=== PATIENT | female | born 2000 | race Caucasian/White ===

== ENCOUNTER 2021-10-23 19:11 | Emergency (ER) | payer MEDICAID ==
[~2021-10-23] VITALS: Ht 154.9 cm; Wt 52.4 kg
[2021-10-23 19:40] VITALS: BP 122/79
[2021-10-23] MEDS ORDERED: KETOROLAC 60 MG/2 ML VIAL IM ONE (20:05)
[2021-10-23] MEDS ORDERED: CIPR500T4 PO (20:07)
[2021-10-23] MEDS ORDERED: IBUP-2213 PO (20:07)
[2021-10-23] MEDS ORDERED: ACET-8386 PO (20:07)
[2021-10-23 20:35] VITALS: BP 118/78
== END 2021-10-23 20:35 | disposition home or self-care (01) ==
LOC: MED 19:11
DX: M54.9 Dorsalgia, unspecified (principal); N12 Tubulo-interstitial nephritis, not specified as acute or chronic; Z98.890 Other specified postprocedural states
CPT/HCPCS: 81002; 81025; 96372; 99283; J1885

== ENCOUNTER 2023-11-25 12:43 | Emergency (ER) | payer MEDICAID, OTHER ==
[~2023-11-25] VITALS: Ht 154.9 cm; Wt 59.4 kg
[~2023-11-25 12:43] MED LIST: ACET-8905 PO; CIPR500T4 PO; IBUP-2213 PO
[2023-11-25 13:06] VITALS: BP 127/88; PULSE 108; RESP 18; TEMP 97.1; O2SAT 100
== END 2023-11-25 13:24 | disposition home or self-care (01) ==
LOC: MED 12:43
DX: H93.8X2 Other specified disorders of left ear (principal); Z00.00 Encounter for general adult medical examination without abnormal findings
CPT/HCPCS: 99281